=== PATIENT | male | born 1995 | race Caucasian/White ===

== ENCOUNTER 2019-01-05 21:50 | Emergency (ER) | payer MEDICAID ==
[~2019-01-05] VITALS: Ht 177.8 cm; Wt 74.8 kg
[2019-01-05 22:00] VITALS: BP 121/79
--- NOTE | 2019-01-05 22:00 | NUR ---
TO BED # 7 AMBULATORY, REPORT GIVEN TO MAGGIE SPIVEY
--- NOTE | 2019-01-05 22:16 | NUR ---
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 PATIENT REPORTS SCRATCHING BUMPS LAST NIGHTON LLE, WOKE UP WITH PAIN, BUMPS ARE WARM TO TOUCH AND PAINFUL, CLEAR/ WHITE DRAINAGE. PAIN IS CONSTANT 9/10, DULL PAIN AGGRAVATED BY AMBULATION. DENIES VISUALIZATION OF BUG, ALLERGY, OR CHANGE OF SLEEP ENVIROMENT. DENIES SOB, CP, BREATHING EVEN AND UNLABORED, DENIES N/V/D, ABDOMINAL PAIN, OR FEVERS. PATIENT IS AOX4, CLEAR SPEECH, STEADY GAIT.
--- NOTE | 2019-01-05 22:38 | NUR ---
PT SITTING UP IN BED, VITALS STABLE.
--- NOTE | 2019-01-05 22:56 | NUR ---
Dr. Lawrence evaluating patient at bedside.
[2019-01-05 23:14] VITALS: BP 121/79
--- NOTE | 2019-01-05 23:14 | NUR ---
Patient discharged with v/s stable. Written and verbal after care instructions given and explained. Patient alert, oriented and verbalized understanding of instructions. Ambulatory with steady gait. All questions addressed prior to discharge. ID band removed. Patient advised to follow up with PMD. Rx of MOTRIN, KEFLEX, BACTRIM WAS given. Patient educated on indication of medication including possible reaction and side effects. Opportunity to ask questions provided and answered.
== END 2019-01-05 23:14 | disposition home or self-care (01) ==
LOC: MED 21:50
DX: L03.116 Cellulitis of left lower limb (principal); L02.416 Cutaneous abscess of left lower limb; F17.200 Nicotine dependence, unspecified, uncomplicated; W57.XXXA Bitten or stung by nonvenomous insect and other nonvenomous arthropods, initial encounter; Y93.89 Activity, other specified; Y92.89 Other specified places as the place of occurrence of the external cause; Y99.8 Other external cause status
CPT/HCPCS: 99283